=== PATIENT | female | born 1930 | race Caucasian/White ===

== ENCOUNTER 2020-07-05 14:52 | Observation (INO) | payer OTHER ==
--- OUTSIDE RECORDS SUMMARY | 2020-07-05 15:01 | XMS ---
:1930 Author Organization [facility] Support Name Relationship Address Phone UE Unavailable Unavailable Unavailable HINA RANGEL FRIEND [address] [place] [address] Re-disclosure Warning The records that you are about to access may contain information from federally- assisted alcohol or drug abuse programs. If such information is present, then the following federally mandated warning applies: This information has been disclosed to you from records protected by federal confidentiality rules (42 CFR part 2). The federal rules prohibit you from making any further disclosure of this information unless further disclosure is expressly permitted by the written consent of the person to whom it pertains or as otherwise permitted by 42 CFR part 2. A general authorization for the release of medical or other information is NOT sufficient for this purpose. The Federal rules restrict any use of the information to criminally investigate or prosecute any alcohol or drug abuse patient.The records that you are about to access may contain highly sensitive health information, the redisclosure of which is protected by Article 27-F of the [facility] Public Health law. If you continue you may haveaccess to information: Regarding HIV / AIDS; Provided by facilities licensed or operated by the [facility] Office of Mental Health; or Provided by the [facility] Office for People With Developmental Disabilities. If such information is present, then the following [facility] mandated warning applies: This information has been disclosed to you from confidential records which are protected by state law. State law prohibits you from making any further disclosure of this information without the specific written consent of the person to whom it pertains, or as otherwise permitted by law. Any unauthorized further disclosure in violation of state law may result in a fine or snf sentence or both. A general authorization for the release of medical or other information is NOT sufficient authorization for further disclosure. Insurance Providers Payer name Policy type Policy ID Covered Covered republican's Policy P nely / Coverage republican ID relationship to [facility] Inf ormation type islas SELF PAY SP INSURANCE
--- NOTE | 2020-07-05 15:05 | PDOC ---
Attending Attestation - Resident Resident Name: Chelsi Shook - HPI HPI: 07/05/20 17:20 Pt presents to the ED complaining of syncope. Syncope was witnessed and occurred while the patient was sitting in a car. Daughter reports that the patient had slurred speech for "a few minutes" after awakening. Patient also complains of nausea with a single episode of vomiting and diarrhea. - Physicial Exam PE: 07/05/20 17:32 Agree with resident exam. Patient is alert and oriented and in no acute distress. CV: rrr no m/r/g Pulm: cTA b/l abdomen: soft, non tender, non distended, no guarding or rebound. Neuro: alert and oriented x 3, speech fluent and clear, CN grossly intact. - Medical Decision Making 07/05/20 17:46 Pt presents to the ED complaining of syncope. Denies other complaints. Differential includes acs, arrythmia, neurogenic syncope. Given episode of slurred speech, TIA also remains on the differential. CT head shows no acute findings. Will admit to medicine for continued work up. Discharge - Discharge Information Problems reviewed: Yes Clinical Impression/Diagnosis: Slurring of speech Syncope Qualifiers: Syncope type: unspecified Qualified Code(s): R55 - Syncope and collapse - Follow up/Referral - Patient Discharge Instructions - Post Discharge Activity
--- NOTE | 2020-07-05 15:16 | PDOC ---
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 Her daughter is at bedside to provide additional history. The pt states that she was feeling well this morning and went to a relative's first communion. At the constitution party afterward, she started having abdominal cramps and had an episode of loose stools. She told her daughter that she needed to go home, and they started walking towards the car. While walking, she became very weak, and her daughter observed that she had difficulty physically getting into the car, which is very abnormal for her. Generally she is able to perform all of her ADL's without any assistance. Once in the car, she reportedly lost cons ciousness for a few minutes, though her eyes remained open, and was totally unresponsive. She was seated at the time and did not fall. The episode was witnessed by her daughter and grandson. When she regained consciousness, her daughter noted that she had slurred speech for a few minutes. She also had one episode of NBNB emesis. Otherwise, prior to the incident this afternoon, Ms Alvarado has been in her normal state of health. She denies any recent fever/chills, chest pain, difficulty breathing, abdominal pain, PO intolerance, prior change in bowel habits (fecal incontinence at baseline for severael years but usually formed stools), dysuria, urinary urgency, or other recent symptoms. NIH Stroke Scale - Last Known Well Date/Time & Onset Date Last Known Well: 07/05/20 Time Last Known Well: 14:00 - Initial Evaluation Level of consciousness: Alert Ask patient the month and their age: Answers both correctly Ask patient to open & close eyes; make fist and let go: Obeys both correctly Best gaze (horizontal eye movement): Normal Visual field testing: No visual field loss Facial paresis (Show teeth/raise eyebrows/close eyes tight): Normal symmetrical movement Motor Function: Left Arm: Normal Motor Function: Right Arm: Normal (extends arm 90 (or 45) degrees for 10 seconds without drift Motor Function: Left Leg: Normal (extends leg 30 degrees for 5 seconds without drift) Motor Function: Right Leg: Normal (extends leg 30 degrees for 5 seconds without drift) Limb Ataxia: No ataxia Sensory(Use pinprick test arms,legs,trunk,face/side to side): Normal Best language (Describe picture, name items, read sentences): No Aphasia Dysarthria (read several words): Normal articulation Extinction and Inattention: No abnormality - Total Score NIH Stroke Scale Score: 0 Past History - Medical History Allergies/Adverse Reactions: Allergies Allergy/AdvReac Type Severity Reaction Status Date / Time No Known Allergies Allergy Verified 07/05/20 15:36 Home Medications: Ambulatory Orders Acetaminophen [Tylenol] 325 mg PO PRN 07/05/20 Amlodipine Besylate/Benazepril [Lotrel ] 1 each PO DAILY 07/05/20 Aspirin [ASA -] 325 mg PO PRN 07/05/20 Atorvastatin Ca [Lipitor] 10 mg PO HS 07/05/20 Esomeprazole Magnesium [Nexium 24Hr] 40 mg PO DAILY 07/05/20 Glipizide [Glipizide ER] 5 mg PO DAILY 07/05/20 Metoprolol Succinate 25 mg PO DAILY 07/05/20 Ubidecarenone [Co Q-10] 100 mg PO DAILY 07/05/20 - Psycho-Social/Smoking History Smoking History: Never smoked - Substance Abuse Hx (Audit-C & DAST Scrn) How often the patient has a drink containing alcohol: Never Score: In Men: 4 or > Positive; In Women: 3 or > Positive: 0 Screen Result (Pos requires Nsg. Audit-10AR): Negative In the last yr the pt used illegal drug/Rx for NonMed reason: No Score: Yes response is considered Positive: 0 Screen Result (Positive result requires Nsg. DAST-10): Negative Review of Systems - Review of Systems Comments:: General: No fevers, no chills, no weight or appetite change, no malaise HEENT: No changes in vision, no changes in hearing, no congestion, no sore throat CV: No chest pain, no palpitations, no LE edema Pulm: No SOB, no cough, no wheezing GI: See HPI : No frequency, no urgency, no dysuria Musc: No back pain, no joint swelling, no recent injury Skin: No rash, no lesions, no erythema Endo: No excessive thirst, no heat/cold intolerance Heme: No unusual bruising or bleeding, no swollen glands Neuro: No syncope, no numbness/tingling, no focal weakness. See HPI Vasc: No claudication Psych: No recent change in mood, no SI or HI *Physical Exam - Vital Signs Last Vital Signs Temp Pulse Resp BP Pulse Ox 98.8 F 64 20 142/53 L 97 07/05/20 15:05 07/05/20 15:05 07/05/20 15:05 07/05/20 15:05 07/05/20 15:05 - Physical Exam General: Comfortable, no acute distress HEENT: Atraumatic, PERRL, EOMI, MMM, voice normal, normal neck ROM Cards: RRR, no murmur appreciated Pulm: Comfortable on room air, clear to auscultation bilaterally Abd: Soft, nontender, nondistended Ext: Atraumatic. No LE edema. ROM intact. Strength 5/5 and equal bilaterally Vasc: Extremities WWP. Skin: Normal color, no rashes or lesions Neuro: A&Ox3, CN grossly intact, normal speech, motor/sensory grossly intact and symmetric. No focal deficits. 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 All symptoms have resolved except for the diarrhea. - Syncope, unclear cause, possible orthostatic given report of diarrhea and vomiting. Slurred speech concerning for TIA or intracranial event. Cannot rule out ACS or arrhythmia - CBC, CMP, trop, EKG, CXR, CTH - NIH stroke scale 0 07/05/20 15:40 - BGM 150, no concern for symptoms secondary to hypoglycemia - EKG with NSR, HR 63, w/ 1st degree block with IN 232. Normal axis, otherwise normal intervals. No ssconcerning t-wave or ST changes. 07/05/20 16:27 - CTH completed, reviewed in the ED. No acute pathology appreciated. Radiology report pending - CBC unremarkable, trop negative - Chemistry pending - Discussed possible admission for syncope workup with pt, will re-discuss when remaining labs and CT read are available 07/05/20 17:16 - Chemistry without concerning abnormalities - CTH without acute changes - Given witnessed syncope and transient slurring of speech, will admit for further management. Patient agrees to admission 07/05/20 18:22 - Patient signed out to Dr Humphreys, will admit for further management. Discussed with Dr Sushma Shook PGY3 Discharge - Discharge Information Problems reviewed: Yes Clinical Impression/Diagnosis: Slurring of speech Syncope Qualifiers: Syncope type: unspecified Qualified Code(s): R55 - Syncope and collapse - Admission Yes - Follow up/Referral Referrals: Joya Bronson MD [Primary Care Provider] - - Patient Discharge Instructions - Post Discharge Activity
[2020-07-05 15:46] LABS: BASO % 0.8 % (0-2.0); EOS % 4.7 % (0-4.5); HEMOGLOBIN 12.8 GM/dL (10.7-15.3); LYMPH % 42.7 % (8-40); MCH 31.6 pg (25.7-33.7); MCHC 34.6 g/dl (32.0-36.0); MEAN CELL VOLUME 91.3 fl (80-96); MONO % 10.5 % (3.8-10.2); NEUT % 41.3 % (42.8-82.8); PLATELET COUNT 249 K/MM3 (134-434); RBC 4.05 M/mm3 (3.60-5.2); RDW 13.2 % (11.6-15.6); WHITE BLOOD COUNT 7.8 K/mm3 (4.0-10.0)
[2020-07-05 16:46] LABS: ALBUMIN 3.8 g/dl (3.4-5.0); ALK PHOS 89 U/L (45-117); ANION GAP 7 MMOL/L (8-16); BILIRUBIN,TOTAL 0.3 mg/dL (0.2-1); BLOOD UREA NITROGEN 27.7 mg/dL (7-18); CALCIUM 9.5 mg/dL (8.5-10.1); CHLORIDE 105 mmol/L (98-107); CO2 26 mmol/L (21-32); CREATININE 1.3 mg/dL (0.55-1.3); GLUCOSE,RANDOM 158 mg/dL (74-106); POTASSIUM 4.8 mmol/L (3.5-5.1); SGOT/AST 60 U/L (15-37); SGPT/ALT 27 U/L (13-61); SODIUM 138 mmol/L (136-145); TOT PROT 7.2 g/dl (6.4-8.2)
[2020-07-05] MEDS ORDERED: SODIUM CHLORIDE 1,000 ML IV SCH (19:15)
--- NOTE | 2020-07-05 20:01 | HP ---
CHIEF COMPLAINT: nausea, vomiting, diarrhea and syncopal event PCP: HISTORY OF PRESENT ILLNESS: 89yo f w/ a PMH of HTN, NIDDM (on glipizide), diverticulosis with previous diverticulitis who presents with acute onset of diarrhea, vomiting, syncope, and transient slurred speech just prior to her arrival. Pt states that she was at [employer] celebrating a first holy communion when she began to experience cramps. Patient attributes this to "eating too much". Patient entered her car to go home, then had an episode of staring witnessed by her dauughter and grandson during which she was unresponsive. The episode lasted a few minutes and resolved spontaneously. Patient's family endorsed that she was alert and oriented directly after the episode, but was slurring her speech for a few minutes after regaining consciousness. This too resolved spontaneously and she returned to normal speech prior to arrival. Patient had one episode of NBNB vomiting prior to arrival. Patient also endorses that another person at the [employer] also had some GI upset after going home. Of note, the patient's diarrhea is chronic and she follows with GI for it. Patient denies fever, chills, cough, chest pain, SOB, dysuria. In the ED, patient had NIHSS of 0, CT head negative. She states she feels better after IVF Recent Travel: none PAST MEDICAL HISTORY: see HPI PAST SURGICAL HISTORY: see hPI Social History: Smoking: denies Alcohol: denies Drugs: denies Allergies No Known Allergies Allergy (Verified 07/05/20 15:36) HOME MEDICATIONS: Home Medications Medication Instructions Recorded Acetaminophen [Tylenol] 325 mg PO PRN 07/05/20 Amlodipine Besylate/Benazepril 1 each PO DAILY 07/05/20 [Lotrel ] Aspirin [ASA -] 325 mg PO PRN 07/05/20 Atorvastatin Ca [Lipitor] 10 mg PO HS 07/05/20 Esomeprazole Magnesium [Nexium 40 mg PO DAILY 07/05/20 24Hr] Glipizide [Glipizide ER] 5 mg PO DAILY 07/05/20 Metoprolol Succinate 25 mg PO DAILY 07/05/20 Ubidecarenone [Co Q-10] 100 mg PO DAILY 07/05/20 REVIEW OF SYSTEMS Negative except as noted in HPI PHYSICAL EXAMINATION Vital Signs - 24 hr 07/05/20 07/05/20 07/05/20 15:05 15:22 17:58 Temperature 98.8 F 97.8 F Pulse Rate 64 60 Pulse Rate [ 59 L Apical] Respiratory 20 18 Rate Blood Pressure 142/53 L Blood Pressure 131/60 [Right Arm] O2 Sat by Pulse 97 97 98 Oximetry (%) GENERAL: Awake, alert, and fully oriented, in no acute distress. HEAD: Normal with no signs of trauma. EYES: Pupils equal, round and reactive to light, extraocular movements intact, sclera anicteric, conjunctiva clear. No lid lag. LUNGS: Breath sounds equal, clear to auscultation bilaterally. No wheezes, and no crackles. No accessory muscle use. HEART: Regular rate and rhythm, normal S1 and S2 without murmur, rub or gallop. ABDOMEN: Soft, nontender, not distended, normoactive bowel sounds. LOWER EXTREMITIES: 2+ pulses, warm, well-perfused. No calf tenderness. No peripheral edema. NEUROLOGICAL: Cranial nerves II-X intact. Normal speech. Laboratory Results - last 24 hr 07/05/20 07/05/20 07/05/20 15:19 15:21 15:30 WBC 7.8 RBC 4.05 Hgb 12.8 Hct 37.0 MCV 91.3 MCH 31.6 MCHC 34.6 RDW 13.2 Plt Count 249 MPV 8.0 Absolute Neuts (auto) 3.2 Neutrophils % 41.3 L Lymphocytes % 42.7 H Monocytes % 10.5 H Eosinophils % 4.7 H Basophils % 0.8 Nucleated RBC % 0 Sodium 138 Potassium 4.8 Chloride 105 Carbon Dioxide 26 Anion Gap 7 L BUN 27.7 H Creatinine 1.3 Est GFR (CKD-EPI)AfAm 42.42 Est GFR (CKD-EPI)NonAf 36.60 POC Glucometer 154 Random Glucose 158 H Calcium 9.5 Total Bilirubin 0.3 AST 60 H ALT 27 Alkaline Phosphatase 89 Creatine Kinase 116 Troponin I < 0.02 Total Protein 7.2 Albumin 3.8 ASSESSMENT/PLAN: 89yo f w/ a PMH of HTN, NIDDM (on glipizide), diverticulosis with previous diverticulitis who presents with acute onset of diarrhea, vomiting, syncope, and transient slurred speech just prior to her arrival. #syncope likely 2/2 chronic diarrhea coupled with n/v, possibly from gastroenteritis. -ate out at restaurant, where another patron was sick after -had episode of diarrhea prior to event -had episode off vomiting after event -combination of above factors led to a likely vasovagal syncope -no shaking/loss of bowels during episode; patient was alert after regaining consciousness, though slurring. -No focal neurological deficits detected on arrival to ed or on my assessment. -EKG shows NSR -telemetry monitoring -carotid doppler -IVF w/ NS @ 76 #NIDDM -holding oral hypoglycemics -BGM ACHS -ISS ACHS #HTN -resume home amlodipine -resume home metoprolol #dispo -admit tele obs Family Medical History Family History: Denies Visit type - Medication Review Med list reviewed for High Risk Meds patients 65 and older: Yes - Emergency Visit Emergency Visit: Yes Care time: The patient presented to the Emergency Department on the above date and was hospitalized for further evaluation of their emergent condition. - New Patient This patient is new to me today: Yes Date on this admission: 07/05/20 - Critical Care Critical Care patient: No
--- OUTSIDE RECORDS SUMMARY | 2020-07-05 20:52 | XMS ---
:1930 Author Organization [facility] Support Name Relationship Address Phone UE, UNEMPLOYED Unavailable Unavailable Unavailable UE Unavailable Unavailable Unavailable HINA RANGEL FRIEND [address] [place] [address] Re-disclosure Warning The records that you are [...] is protected by Article 27-F of the [facility] Public Health law. If you continue you may haveaccess to information: Regarding HIV / AIDS; Provided by facilities licensed or operated by the [facility] Office of Mental Health; or Provided by the [facility] Office for People With Developmental Disabilities. If such information is present, then the following [facility] mandated warning applies: This information has [...] law may result in a fine or detention sentence or both. A general authorization for the release of medical or other information is NOT sufficient authorization for further disclosure. Insurance Providers Payer name Policy type Policy ID Covered Covered republican's Policy P nely / Coverage republican ID relationship to [facility] Inf ormation type islas [place] [id number] HEALTHCARE (MEDICARE) SELF PAY SP INSURANCE
[2020-07-05] MEDS ORDERED: ATORVASTATIN CA 10 MG TABLET (FP) ONE (21:14)
[2020-07-05] MEDS: INSULIN SLIDING SCALE (NOVOLOG) 1 VIAL SQ SCH (21:32)
[2020-07-05 21:57] LABS: EPI CELLS 4 /uL (0-25.1); HYALINE CASTS 2 /uL (0-3.1); URINE APPEARANCE CLEAR; URINE BACTERIA 162 /uL (0-1359); URINE BILIRUBIN NEGATIVE (NEGATIVE); URINE COLOR YELLOW; URINE GLUCOSE (UA) 3+ (NEGATIVE); URINE KETONE NEGATIVE (NEGATIVE); URINE LEUK ESTERASE 2+ (NEGATIVE); URINE NITRITE NEGATIVE (NEGATIVE); URINE PROTEIN NEGATIVE (NEGATIVE); URINE RBC 77 /uL (0-23.9); URINE UROBILINOGEN 0.2 mg/dL (0.2-1.0); URINE WBC 128 /uL (0-25.8)
[2020-07-05] MEDS ORDERED: ATORVASTATIN CA 10 MG TABLET (FP) PO SCH (22:00)
[2020-07-06 00:05] VITALS: BMI 26.0
[2020-07-06 07:06] LABS: HEMATOCRIT 33.7 % (32.4-45.2); HEMOGLOBIN 11.6 GM/dL (10.7-15.3); MCHC 34.5 g/dl (32.0-36.0); MEAN CELL VOLUME 89.8 fl (80-96); MEAN PLT VOLUME 8.1 fl (7.5-11.1); PLATELET COUNT 232 K/MM3 (134-434); RBC 3.75 M/mm3 (3.60-5.2); RDW 13.1 % (11.6-15.6); WHITE BLOOD COUNT 7.9 K/mm3 (4.0-10.0)
[2020-07-06] MEDS: INSULIN SLIDING SCALE (NOVOLOG) 1 VIAL SQ SCH ×2 (07:25→11:57)
[2020-07-06 07:28] LABS: ALBUMIN 3.2 g/dl (3.4-5.0); BILIRUBIN,TOTAL 0.4 mg/dL (0.2-1); BLOOD UREA NITROGEN 21.1 mg/dL (7-18); CALCIUM 8.9 mg/dL (8.5-10.1); CREATININE 0.9 mg/dL (0.55-1.3); MAGNESIUM 1.6 mg/dL (1.8-2.4); POTASSIUM 3.9 mmol/L (3.5-5.1); TOT PROT 6.3 g/dl (6.4-8.2)
[2020-07-06] MEDS ORDERED: MAGNESIUM SULF 50% (8.12 MEQ/2 ML-1 GM VIAL) IVPB ONE (07:52)
[2020-07-06] MEDS ORDERED: LISINOPRIL 20 MG TABLET PO SCH (10:00)
[2020-07-06] MEDS ORDERED: amLODIPine BESYLATE 10 MG TABLET (FP) PO SCH (10:00)
[2020-07-06] MEDS ORDERED: metoPROLOL SUCCINATE 25 MG TAB.SR.24H (FP) PO SCH (10:00)
[2020-07-06 11:05] VITALS: BP 149/66; PULSE 86; TEMP 98.1
--- NOTE | 2020-07-06 11:56 | DS ---
Physical Exam: SUBJECTIVE: Patient seen and examined - feels much better. No recurrence of lightheadedness. No preceding CP/palpitations. No HI. OBJECTIVE: Afebrile, Hemodynamically Stable. Vital Signs Period Temp Pulse Resp BP Sys/Bran Pulse Ox Last 24 Hr 97.8 F-98.8 F 59-86 18-20 131-152/53-66 95-99 PHYSICAL EXAM HEENT - Atraumatic, Normocephalic. Heart - S1, S2, RRR Lungs - clear to auscultation Abdomen - Soft, non-tender. Bowel Sounds normal. Extremities - no edema, no calf tenderness. Neuro - AAO x 3. BRANDYN. EOMI. Tone/Power normal all extremities. LABS Laboratory Results - last 24 hr 07/05/20 07/05/20 07/05/20 15:19 15:21 15:30 WBC 7.8 RBC 4.05 Hgb 12.8 Hct 37.0 MCV 91.3 MCH 31.6 MCHC 34.6 RDW 13.2 Plt Count 249 MPV 8.0 Absolute Neuts (auto) 3.2 Neutrophils % 41.3 L Lymphocytes % 42.7 H Monocytes % 10.5 H Eosinophils % 4.7 H Basophils % 0.8 Nucleated RBC % 0 Sodium 138 Potassium 4.8 Chloride 105 Carbon Dioxide 26 Anion Gap 7 L BUN 27.7 H Creatinine 1.3 Est GFR (CKD-EPI)AfAm 42.42 Est GFR (CKD-EPI)NonAf 36.60 POC Glucometer 154 Random Glucose 158 H Calcium 9.5 Phosphorus Magnesium Total Bilirubin 0.3 AST 60 H ALT 27 Alkaline Phosphatase 89 Creatine Kinase 116 Troponin I < 0.02 Total Protein 7.2 Albumin 3.8 Urine Color Urine Appearance Urine pH Ur Specific [place] Urine Protein Urine Glucose (UA) Urine Ketones Urine Blood Urine Nitrite Urine Bilirubin Urine Urobilinogen Ur Leukocyte Esterase Urine WBC (Auto) Urine RBC (Auto) Urine Casts (Auto) U Epithel Cells (Auto) Urine Bacteria (Auto) 07/05/20 07/05/20 07/06/20 21:24 21:30 05:27 WBC 7.9 RBC 3.75 Hgb 11.6 Hct 33.7 MCV 89.8 MCH 31.0 MCHC 34.5 RDW 13.1 Plt Count 232 MPV 8.1 Absolute Neuts (auto) Neutrophils % Lymphocytes % Monocytes % Eosinophils % Basophils % Nucleated RBC % Sodium Potassium Chloride Carbon Dioxide Anion Gap BUN Creatinine Est GFR (CKD-EPI)AfAm Est GFR (CKD-EPI)NonAf POC Glucometer 264 Random Glucose Calcium Phosphorus Magnesium Total Bilirubin AST ALT Alkaline Phosphatase Creatine Kinase Troponin I Total Protein Albumin Urine Color Yellow Urine Appearance Clear Urine pH 5.0 Ur Specific [place] 1.018 Urine Protein Negative Urine Glucose (UA) 3+ H Urine Ketones Negative Urine Blood 1+ H Urine Nitrite Negative Urine Bilirubin Negative Urine Urobilinogen 0.2 Ur Leukocyte Esterase 2+ H Urine WBC (Auto) 128 Urine RBC (Auto) 77 Urine Casts (Auto) 2 U Epithel Cells (Auto) 4 Urine Bacteria (Auto) 162 07/06/20 07/06/20 07/06/20 05:27 05:32 11:43 WBC RBC Hgb Hct MCV MCH MCHC RDW Plt Count MPV Absolute Neuts (auto) Neutrophils % Lymphocytes % Monocytes % Eosinophils % Basophils % Nucleated RBC % Sodium 140 Potassium 3.9 Chloride 107 Carbon Dioxide 26 Anion Gap 7 L BUN 21.1 H Creatinine 0.9 Est GFR (CKD-EPI)AfAm 66.16 Est GFR (CKD-EPI)NonAf 57.09 POC Glucometer 138 195 Random Glucose 142 H Calcium 8.9 Phosphorus 3.0 Magnesium 1.6 L Total Bilirubin 0.4 AST 37 ALT 20 Alkaline Phosphatase 80 Creatine Kinase Troponin I Total Protein 6.3 L Albumin 3.2 L Urine Color Urine Appearance Urine pH Ur Specific [place] Urine Protein Urine Glucose (UA) Urine Ketones Urine Blood Urine Nitrite Urine Bilirubin Urine Urobilinogen Ur Leukocyte Esterase Urine WBC (Auto) Urine RBC (Auto) Urine Casts (Auto) U Epithel Cells (Auto) Urine Bacteria (Auto) Discharge Medications Medication Instructions Recorded Acetaminophen [Tylenol] 325 mg PO PRN 07/05/20 Amlodipine Besylate/Benazepril 1 each PO DAILY 07/05/20 [Lotrel ] Aspirin [ASA -] 325 mg PO PRN 07/05/20 Atorvastatin Ca [Lipitor] 10 mg PO HS 07/05/20 Esomeprazole Magnesium [Nexium 40 mg PO DAILY 07/05/20 24Hr] Glipizide [Glipizide ER] 5 mg PO DAILY 07/05/20 Metoprolol Succinate 25 mg PO DAILY 07/05/20 Ubidecarenone [Co Q-10] 100 mg PO DAILY 07/05/20 Date of Admission:07/05/20 Date of Discharge: 07/06/20 Minutes to complete discharge: 40 Discharge Summary Problems reviewed: Yes Reason For Visit: SLURRED SPEECH,SYNCOPE Current Active Problems Slurring of speech (Acute) Syncope (Acute) Hospital Course: 89 year old female with history of HTN, DM 2, Diverticulosis, admitted after an episode of lightheadedness and syncope after defecation (not diarrheal), without preceding CP/palpitations. No HI. Post episodic vomiting now resolved. No further lightheadedness. No neurological deficits. 1. Syncope likely vasovagal s/p BM Preceding lightheadedness without CP/palpitations, no suspicion of seizure CT Head - no acute intracranial findings. Symptoms resolved. No fever/chills. No diarrhea. No dysuria. Urine Cx pending. Advised to stay for Echo tomorrow but patient would like to leave against medical advice. She was explained all risks of doing so including further lightheadedness, syncope, head injury, disability, . She verbalized understanding and accepts responsibility. She rather follow up with her Primary Care Team and [facility] at [facility]. 2. HTN - Advised to resume home medications. 3. DM 2 - Advised to resume home medications Condition: Good - Instructions Diet, Activity, Other Instructions: You were admitted with lightheadedness and a syncopal episode associated with having a bowel movement. You were monitored overnight with no recurrence of symptoms. You were advised to have an Echo done tomorrow, however, you declined further hospitalization, in favor of following up with your own [facility] at [facility]. You were explained the risks of leaving against medical advise and you accepted responsibility for those risks. Please see your PPC and/or [facility] as soon as possible next week to prevent recurrent episodes of lightheadedness/syncope. Referrals: Joya Bronson MD [Primary Care Provider] - 1 Week Disposition: AGAINST MEDICAL ADVICE - Home Medications Comprehensive Discharge Medication List: Ambulatory Orders Acetaminophen [Tylenol] 325 mg PO PRN 07/05/20 Amlodipine Besylate/Benazepril [Lotrel ] 1 each PO DAILY 07/05/20 Aspirin [ASA -] 325 mg PO PRN 07/05/20 Atorvastatin Ca [Lipitor] 10 mg PO HS 07/05/20 Esomeprazole Magnesium [Nexium 24Hr] 40 mg PO DAILY 07/05/20 Glipizide [Glipizide ER] 5 mg PO DAILY 07/05/20 Metoprolol Succinate 25 mg PO DAILY 07/05/20 Ubidecarenone [Co Q-10] 100 mg PO DAILY 07/05/20 This patient is new to me today: Yes Date on this admission: 07/06/20 Emergency Visit: Yes ED Registration Date: 07/05/20 Care time: The patient presented to the Emergency Department on the above date and was hospitalized for further evaluation of their emergent condition. Critical Care patient: No - Discharge Referral Referred to [facility] No
--- NOTE | 2020-07-06 21:48 | EKG ---
Test Reason : Blood Pressure : / mmHG Vent. Rate : 063 BPM Atrial Rate : 063 BPM P-R Int : 232 ms QRS Dur : 084 ms QT Int : 442 ms P-R-T Axes : 059 004 055 degrees QTc Int : 452 ms SINUS RHYTHM WITH 1ST DEGREE A-V BLOCK OTHERWISE NORMAL ECG NO PREVIOUS ECGS AVAILABLE Confirmed by Awilda Warner ([id number]) on 07/06/2020 9:48:02 PM Referred By: Confirmed By:Awilda Warner
== END 2020-07-06 13:48 | disposition left against medical advice (07) ==
LOC: JER 14:52 → JERBED 17:18 → J4W 22:07
PROVIDERS: ADMIT Internal Medicine
PROC: 3E013VG Introduction of Insulin into Subcutaneous Tissue, Percutaneous Approach (ICD-10-PCS; principal; 2020-07-05)
PROC: 3E033GC Introduction of Other Therapeutic Substance into Peripheral Vein, Percutaneous Approach (ICD-10-PCS; 2020-07-05)
PROC: 3E0337Z Introduction of Electrolytic and Water Balance Substance into Peripheral Vein, Percutaneous Approach (ICD-10-PCS; 2020-07-05)
DX: R55 Syncope and collapse (principal); R47.81 Slurred speech; K57.92 Diverticulitis of intestine, part unspecified, without perforation or abscess without bleeding; Z79.84 Long term (current) use of oral hypoglycemic drugs; I10 Essential (primary) hypertension; E11.9 Type 2 diabetes mellitus without complications; K52.9 Noninfective gastroenteritis and colitis, unspecified; R10.2 Pelvic and perineal pain
CPT/HCPCS: 36415; 70450-TC; 71045-TC-FY; 80053; 81003; 82550; 82962; 83735; 84100; 84484; 85025; 85027; 87086; 93005; 93010; 96361; 96372; 96374; 99285-25; C9803; G0378; U0003